=== PATIENT | female | born 1950 | race Caucasian/White ===

== ENCOUNTER 2019-03-18 05:46 | Inpatient (IN) | payer OTHER ==
[2019-03-03 13:40] LABS: HEMATOCRIT 40.7 % (37.0-47.0); HEMOGLOBIN 13.5 gm/dL (12.0-15.0); MCH 31.9 pg (26.0-34.0); MCHC 33.1 g/dL (28.0-37.0); MCV 96.3 fL (80.0-100.0); RBC 4.23 mil/uL (4.20-5.00); RDW 13.2 % (10.5-14.5); WBC 6.7 thou/uL (4.0-11.0)
[2019-03-03 13:45] LABS: URINE BILIRUBIN NEGATIVE (Negative); URINE BLOOD NEGATIVE (Negative); URINE CLARITY CLEAR; URINE COLOR YELLOW; URINE GLUCOSE-RANDOM* NEGATIVE (Negative); URINE KETONES NEGATIVE (Negative); URINE NITRITE-REFLEX NEGATIVE (Negative); URINE PROTEIN (DIPSTICK) NEGATIVE (Negative); URINE UROBILINOGEN 0.2 E.U./dl (0.2-1.0)
[2019-03-03 13:49] LABS: URINE LEUKOCYTES-REFLEX 1+ (Negative)
[2019-03-03 13:53] LABS: ALBUMIN 4.3 g/dL (3.4-5.0); CALCIUM 9.8 mg/dL (8.5-10.1); CREATININE 1.2 mg/dL (0.6-1.0)
[2019-03-03 13:54] LABS: INR 1.1
[2019-03-03 13:57] LABS: BACTERIA-REFLEX 1-9 Few /HPF (None Seen); CASTS None Seen /LPF (None Seen); CRYSTALS None Seen /LPF (None Seen); SQUAMOUS >10 Many /LPF (0-3); URINE RBC None Seen /HPF (0-2); URINE WBC-REFLEX 0-5 Rare /HPF (0-5)
[~2019-03-18] VITALS: Ht 157.5 cm; Wt 76.7 kg
[~2019-03-18 05:46] MED LIST: ALLEGRA ALLERG180 MG PO; AMLODIPINE BESY10 MG PO; ASA81BEC PO; ATENOLOL 100MG100 MG PO; FISH OIL 1,0001 EAC9 PO; HALOBETASOL PRO15 G1 TOP; IBUPROFEN 400400 M1 PO; MULTIVITAMINS1 EAC7 PO; TRAMADOL 50 MG50 MG PO; TRIGLIDE160 M1 PO; VITAMIN D1000 UNI2 PO; ZESTRIL40 MG PO
[2019-03-18 07:33] VITALS: BP 148/49
[2019-03-18 13:16] VITALS: BP 117/51
--- NOTE | 2019-03-18 17:27 | NUR ---
ASSUMED CARE OF PT AT 0700. PT IS ABLE TO AMBULATE TO THE TOILET WITH A STANDBY ASSIST. PTS PAIN IS BEING CONTROLLED BY PAIN MEDICATION. POLAR PACK, ILIANA HOSE AND SCD'S IN PLACE. CALL LIGHT IS WITHIN REACH. FALL PRECAUTIONS IN PLACE. WILL CONTINUE TO MONITOR THE PT.
[2019-03-18 17:38] VITALS: BP 111/66
[2019-03-18 17:39] VITALS: BP 110/63; BP 116/64; BP 123/74
[2019-03-19] VITALS (7 sets, daily range): BP systolic 133–139; BP diastolic 46–58
--- NOTE | 2019-03-19 01:58 | NUR ---
ASSUMED CARE OF PT AT APPROX. 2114. ASSESSMENT CHARTED. MEDICATION GIVEN PER JUL. VSS. PATIENT IS A&OX4 AND VOICES NO C/O PAIN AT THIS TIME. PATIENT GOT UP TO BATHROOM, UP X 1 MIN TO MOD ASSIST AND TOLERATING WELL. PATIENT HAS GOOD ROM ON AFFECTED KNEE AND IS DOING WELL. FALL PRECAUTIONS IN PLACE. WILL CONTINUE TO MONITOR AND FOLLOW POC.
[2019-03-19 04:59] LABS: HEMATOCRIT 36.3 % (37.0-47.0); HEMOGLOBIN 12.2 gm/dL (12.0-15.0); MCH 32.2 pg (26.0-34.0); MCHC 33.7 g/dL (28.0-37.0); MCV 95.7 fL (80.0-100.0); RBC 3.79 mil/uL (4.20-5.00); RDW 12.9 % (10.5-14.5); WBC 13.6 thou/uL (4.0-11.0)
[2019-03-19] MEDS ORDERED: ASA81BEC PO (12:13)
[2019-03-19] MEDS ORDERED: NEURONTIN 300300 M1 PO (12:13)
--- NOTE | 2019-03-19 14:22 | NUR ---
DISCHARGE PAPERWORK GONE OVER SIGNED AND COPY INCHART. RX GIVEN TO PATIENT. HYROCODONE RX SENT TO SON TIBURCIO VIA E-MAIL TIBURCIO WORKS AT [employer]. IV ACSESS DCD. ALL BELONGINGS PACKED AND WILL BE SENT WITH PATIENT. HERE AT BEDSIDE. SON TO DRIVE HOME.
--- NOTE | 2019-03-19 14:48 | NUR ---
ASSESSMENT-PT LIVES AT HOME WITH HER . SHE WAS INDEPENDENT OF ADLS AND AMBULATION PRIOR TO ADMISSION. PT WILL GO [facility] SATURDAY [facility]. BOTH PT AND SPOUSE DRIVE. PT NEEDS A ROLLER WALKER FOR HOME TODAY. OFFERED OPTIONS AND SHE CHOSE [employer]. CONTACTED LORI TO ISSSUE A ROLLER WALKER FOR TODAY. FOLLOWING TO ASSIST WITH DC PLANNING.
--- NOTE | 2019-03-24 14:57 | O ---
[facility] [place] [address] OPERATIVE REPORT Name: XIOMARA FORD Room #: 437-P [facility] IN M.R.#: [id number] Admission: 03/18/19 Attend Phys: Td Zapata MD Discharge: 03/19/19 Date of : 50 Report #: [id number] THIS REPORT FOR: //name// CC: Evon MorinDriss Zapata DATE OF SERVICE: 03/18/2019 PREOPERATIVE DIAGNOSIS: Right knee medial compartment osteoarthritis. POSTOPERATIVE DIAGNOSIS: Right knee medial compartment osteoarthritis. PROCEDURE: Right knee medial compartment arthroplasty using Navio robotic assistance. SURGEON: Td aZpata MD STOCK CONTROL CLERK: Josefina Love PA-C INDICATIONS FOR STOCK CONTROL CLERK: Throughout the case, extensive retraction and manipulation of the knee was required. This was afforded to me by my household assistant. ANESTHESIA: LMA with an adductor canal block. IMPLANTS: Sena and Nephew size 4 Journey Oxinium medial femoral component, size 1 tibia and a size 8 polyethylene. TOURNIQUET TIME: 42 minutes. ESTIMATED BLOOD LOSS: 25 mL. COMPLICATIONS: None. SPECIMENS: None. CONDITION UPON LEAVING THE OPERATING ROOM: Stable. INDICATIONS FOR PROCEDURE: The patient is a 68-year-old female with severe right knee medial compartment osteoarthritis. She had failed conservative measures for this and after discussion with her, she elected for right medial compartment knee arthroplasty. DESCRIPTION OF PROCEDURE: Risks, benefits, alternatives, complications were discussed in detail with the patient including but not limited to risk of anesthesia, risk of damage to nerves, arteries, blood vessels, risk for infection, bleeding, risk for continued knee pain, need for reoperation. [facility] [address] [place] [address] OPERATIVE REPORT Name: XIOMARA FORD Room #: 437-P [facility] IN M.R.#: [id number] Admission: 03/18/19 Attend Phys: Td Zapata MD Discharge: 03/19/19 Date of : 50 Report #: [id number] Informed consent was obtained from the patient. Right knee was appropriately marked in the preoperative holding area. IV Ancef was given for preoperative antibiotics. Adductor canal block was placed by Anesthesia. She was brought to the operating room and placed in supine position on operating room table. LMA anesthesia was induced without complication. Tourniquet was placed on the right thigh. Right lower extremity was prepped and draped in normal sterile fashion. Timeout was performed properly identifying the patient and procedure as well as the instrumentation and implants. All in the operating room were in agreement. Right lower extremity was exsanguinated, tourniquet was inflated. Tourniquet time was 42 minutes. Standard approach to the medial knee was made with 10 blade through the skin. Dissection was taken down sharply to the fascia and deep flaps were developed medially and laterally. Fresh 10 blade was used to make a medial parapatellar arthrotomy and the knee was inspected. There was severe medial compartment osteoarthritis. Lateral compartment was well maintained. ACL was intact. 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 It was decided to proceed with medial compartment arthroplasty. Reference pins were placed in the femur and the tibia. The knee was then digitally mapped using the [employer] robotic system. Intraoperative plan was made and we sized the size 4 femur and a size 1 tibia with a 9 spacer. After acceptance of the intraoperative plan, the femoral and tibial resections were made with a Navio bur. The medial meniscus was removed with Bovie cautery. Tibia was sized, found to be a size 1. A size 1 tibial trial was pinned and drilled. A size 4 femoral trial was placed and then this was trialed with a size 8 polyethylene. Knee was taken through range of motion, found to have a millimeter laxity medially throughout range of motion of the knee. After this, trial components were removed. Bony ends were thoroughly irrigated with normal saline. Final size 1 tibia, size 4 Journey Oxinium medial compartment, femoral component were cemented in place using standard cementation techniques. While the cement cured, a periarticular injection consisting of morphine, ropivacaine, epinephrine, Toradol placed around the knee joint capsule. After the cement cured, the tourniquet was deflated. Hemostasis was obtained with Bovie cautery. Final size 8 polyethylene was placed. A gram of vancomycin was placed deep in the joint. Fascia was closed with 0 Vicryl, skin was closed with 2-0 Vicryl, 3-0 Monocryl. Dermabond and a LAWRENCE dressing was applied. The patient tolerated this procedure well and went to recovery room under care of anesthesia postoperatively. <ELECTRONICALLY SIGNED> By: Td Zapata MD 03/24/19 1457 1030 [id number] Td Zapata MD /nt
== END 2019-03-19 16:43 | disposition home or self-care (01) | DRG 470 ==
LOC: 4S 05:46 → TBA 05:46 → PRE 10:32 → 4S 12:23 → PRE 12:35 → ENTRNSPT 03-19 14:26 → EDTRNSPTSTS 03-19 14:29 → 4S 03-19 16:43
PROVIDERS: ADMIT Orthopaedic Surgery
PROC: 0SRC069 Replacement of Right Knee Joint with Oxidized Zirconium on Polyethylene Synthetic Substitute, Cemented, Open Approach (ICD-10-PCS; principal; 2019-03-18)
PROC: 8E0Y0CZ Robotic Assisted Procedure of Lower Extremity, Open Approach (ICD-10-PCS; principal; 2019-03-18)
DX: M17.11 Unilateral primary osteoarthritis, right knee (principal); Z88.6 Allergy status to analgesic agent; Z79.899 Other long term (current) drug therapy
CPT/HCPCS: 10102; 50010; 50101; 50415; 50954; 51130; 51225; 51320; 52001; 52282; 53078; 53370; 54118; 56527; 56528; 57095; 57103; 57110; 57127; 57180; 62110; 62900; 64039; 70005

== ENCOUNTER → 2019-12-10 | Outpatient (CLI) | payer OTHER ==
[~2019-12-10] MED LIST changes: +ASPIR 8181 M1 PO; +CIPRO500 MG PO; +MELOXICAM15 MG PO; +METRONIDAZOLE500 M4 PO; +NEURONTIN 300300 M1 PO; +PEPCID AC20 MG PO
== END ==
LOC: LAB 11:21
PROVIDERS: ATTEND Student in an Organized Health Care Education/Training Program
DX: Z01.812 Encounter for preprocedural laboratory examination (principal); Z11.59 Encounter for screening for other viral diseases

== ENCOUNTER 2019-12-15 06:22 | Day surgery (SDC) | payer OTHER ==
[2019-12-10 11:25] LABS: HEMATOCRIT 41.4 % (37.0-47.0); HEMOGLOBIN 13.9 gm/dL (12.0-15.0); MCH 31.9 pg (26.0-34.0); MCHC 33.6 g/dL (28.0-37.0); RBC 4.36 mil/uL (4.20-5.00); RDW 14.2 % (10.5-14.5)
[2019-12-10 11:30] LABS: URINE BILIRUBIN NEGATIVE (Negative); URINE BLOOD NEGATIVE (Negative); URINE CLARITY CLEAR; URINE COLOR YELLOW; URINE GLUCOSE-RANDOM* NEGATIVE (Negative); URINE KETONES NEGATIVE (Negative); URINE NITRITE-REFLEX NEGATIVE (Negative); URINE PROTEIN (DIPSTICK) NEGATIVE (Negative); URINE UROBILINOGEN 0.2 E.U./dl (0.2-1.0)
[2019-12-10 11:31] LABS: URINE LEUKOCYTES-REFLEX 2+ (Negative)
[2019-12-10 11:40] LABS: INR 1.2; PROTIME 11.9 Seconds (9.3-11.4)
[2019-12-10 11:46] LABS: ALBUMIN 4.3 g/dL (3.4-5.0); CALCIUM 9.9 mg/dL (8.5-10.1); CREATININE 1.4 mg/dL (0.6-1.0); POTASSIUM 4.4 mmol/L (3.5-5.1)
[2019-12-10 12:14] LABS: BACTERIA-REFLEX 1-9 Few /HPF (None Seen); CASTS None Seen /LPF (None Seen); CRYSTALS None Seen /LPF (None Seen); SQUAMOUS 4-10 Moderate /LPF (0-3); URINE RBC None Seen /HPF (0-2); URINE WBC-REFLEX 6-15 Few /HPF (0-5)
[2019-12-15] VITALS (14 sets, daily range): BP systolic 110–146; BP diastolic 43–73
[~2019-12-15] VITALS: Ht 157.5 cm; Wt 76.7 kg
--- NOTE | 2019-12-15 14:26 | NUR ---
PATIENT ADMITTED FROM OR WITH LEFT TOTAL KNEE, LAWRENCE DRESSING, KNEE HIGH ILIANA HOSE, POLAR PACK, SCD'S. PATIENT C/O PAIN WITH LEFT KNEE, 10/13, FENTANYL 50MCG IV GIVEN DURING ADMISSION. PATIENT HAS LEFT HAND IV IN PLACE. PATIENT GIVEN ALL SCHEDULED MEDS DURING ADMISSION. NO C/O NAUSEA, REGULAR DIET ORDERED. AT BEDSIDE. ADMISSION COMPLETED AND REPORT GIVEN TO AMARILYS/RN.
--- NOTE | 2019-12-15 18:34 | NUR ---
Assumed care of pt. at 1300. Pt. is calm and cooperative. PT. does not complain of pain. Fall precautions in place.
--- NOTE | 2019-12-16 01:53 | NUR ---
PT IS ALERT AND ORIENTED. PT WALKS TO THE BATHROOM WITH SBA. DRSG TO L KNEE IS C/D/I. POLAR BALBIR IN PLACE. NEUROVASCULAR CHECKS INTACT TO LLE. AFEBRILE. IV FLUIDS AND IV ABTS GIVEN PER SCHEDULE.DENIES NAUSEA OR VOMITING.PROGRESSING TOWARDS CARE GOALS.
[2019-12-16 06:12] LABS: HEMATOCRIT 27.7 % (37.0-47.0); HEMOGLOBIN 9.3 gm/dL (12.0-15.0); MCH 32.5 pg (26.0-34.0); MCHC 33.6 g/dL (28.0-37.0); MCV 96.6 fL (80.0-100.0); RBC 2.87 mil/uL (4.20-5.00); RDW 14.1 % (10.5-14.5); WBC 13.5 thou/uL (4.0-11.0)
--- NOTE | 2019-12-16 08:42 | NUR ---
PT IS IN BED WATCHING TV HAD LEFT TOTAL KNEE REPLACEMENT. POLAR PACK FILLED WITH ICE AND WATER. HAS SCD'S AND ILIANA HOSE ON BILATERALLY. PT WALKED TO BATHROOM WITH SBA.PT STATES NO PAIN AT THE PRESENT. PT EATING BREAKFAST. NO N&V.PT IS PLEASANT AND COOPERATIVE WITH CARE.
[2019-12-16 09:55] VITALS: BP 136/54
[2019-12-16 10:35] VITALS: BP 136/54
[2019-12-16 11:34] VITALS: BP 127/28
[2019-12-16 13:13] VITALS: BP 136/54
--- NOTE | 2019-12-16 14:03 | NUR ---
DISCHARGE PAPERS REVIEWED WITH PATIENT SIGNED AND COPY IN CHART. IV ACSESS DCD. RX AND ORTHO FOLDER GIVEN TO PATIENT. ALL BELONGINGS PACKED AND SENT WITH PATIENT.NO PAIN OR RESP DISTRESS AT DISCHARGE.
--- NOTE | 2019-12-21 15:50 | O ---
[facility] [place] [address] OPERATIVE REPORT Name: XIOMARA FORD Room #: DEP [place] M.Tosha.#: [id number] Admission: 12/15/19 Attend Phys: Td Zapata MD Discharge: 12/16/19 Date of : 50 Report #: [id number] THIS REPORT FOR: cc: Evon Sanon MD, Paula V. MD Abraham,Td Coleman MD ~ CC: Evon Zapata DATE OF SERVICE: 12/15/2019 PREOPERATIVE DIAGNOSIS: Left knee osteoarthritis. POSTOPERATIVE DIAGNOSIS: Left knee osteoarthritis. PROCEDURE: Left total knee arthroplasty using Navio robotic administrative assistant. SURGEON: Td Zapata MD. VISCOSE CELLAR CHARGE HAND: Josefina Love PA-C. INDICATIONS FOR VISCOSE CELLAR CHARGE HAND: Throughout the case, extensive retraction and manipulation of the knee was required. This was afforded to me by my administrative assistant. ANESTHESIA: LMA with an adductor canal block. IMPLANTS: Sena and Nephew size 4, Journey II [employer] cobalt chrome femur, size 2 tibia, size 11 constrained polyethylene and a size 29 patella. TOURNIQUET TIME: 56 minutes. ESTIMATED BLOOD LOSS: 25 mL. COMPLICATIONS: None. SPECIMENS: None. CONDITION UPON LEAVING THE OPERATING ROOM: Stable. INDICATIONS FOR PROCEDURE: The patient is a 69-year-old female with left knee valgus osteoarthritis. She had failed conservative measures for this and after discussion with her, she elected for left total knee arthroplasty. DESCRIPTION OF PROCEDURE: Risks, benefits, alternatives, complications were discussed in detail with the patient including but not limited to risk of anesthesia, risk of damage to nerves, arteries, blood vessels, risk for [facility] [address] [place] [address] OPERATIVE REPORT Name: XIOMARA FORD Room #: DEP [place] Crystal.#: [id number] Admission: 12/15/19 Attend Phys: Td Zapata MD Discharge: 12/16/19 Date of : 50 Report #: [id number] infection, bleeding, risk for continued knee pain, need for reoperation. Informed consent was obtained from the patient. Left knee was appropriately marked in the preoperative holding area. IV Ancef was given for preoperative antibiotics. She was brought to the operating room and placed in supine position on operating room table. LMA anesthesia was induced without complication. Tourniquet was placed on the left thigh. Left lower extremity was prepped and draped in normal sterile fashion. Timeout was performed, properly identifying the patient and procedure as well as the instrumentation and implants. All in the operating room were in agreement. Left lower extremity was exsanguinated, tourniquet was inflated. Tourniquet time was 56 minutes. Standard midline approach to the knee was made with 10 blade through the skin. Dissection was taken down sharply to the fascia and deep flaps were developed medially and laterally. Fresh 10 blade was used to make a medial parapatellar arthrotomy and the knee was inspected. There was severe lateral compartment osteoarthritis with moderate medial and patellofemoral compartment arthritis. ACL and PCL were removed sharply. Reference pins were placed in the femur and the tibia. The knee was digitally mapped using the [employer] robotic system. Intraoperative plan was made and we sized the size 4 femur with a size 2 tibia with a 10 spacer. After acceptance of the intraoperative plan, the distal femoral cut was made with a Navio bur. Distal femoral cutting block was pinned in place and the chamfer cuts were made. Attention was turned to tibia and tibial resection guide was pinned in place using the Navio for placement and tibial resection was made. Flexion and extension gaps were then checked and found to have good balance laterally in flexion and extension with a slight laxity medially. It was felt we could make up for this with a constrained implant. Tibia was sized, found to be a size 2. A size 2 tibial trial was placed, pinned and punched. Size 4 femoral trial was placed and the box cut was made. This was then trialed with a size 10 and then a size 11 constrained polyethylene and size 11 constrained polyethylene demonstrated a millimeter of laxity laterally throughout range of motion with 1-2 mm medially, 9 mm was then removed from the posterior surface of the patella and a size 29 patellar trial was placed. Knee was taken through range of motion, found to be stable, found to have good patellar tracking. After this, trial components were removed. Bony ends were thoroughly irrigated with normal saline. Final size 2 tibia, size 4 Journey II BCS cobalt chrome femur and a size 29 patella were cemented in place using standard cementation techniques. While the cement cured, a periarticular injection consisting of morphine, ropivacaine, epinephrine and Toradol was placed around the knee joint capsule. After the cement cured, the tourniquet was deflated. Hemostasis was obtained with Bovie cautery. A final size 11 constrained polyethylene was placed. A gram of vancomycin was placed deep in the joint. Fascia was closed with 0 Vicryl, skin was closed with 2-0 Vicryl, 3-0 Monocryl. Dermabond and a LAWRENCE dressing was applied. The patient [address] [address] OPERATIVE REPORT Name: XIOMARA FORD Room #: DEP [facility] Manfred#: [id number] Admission: 12/15/19 Attend Phys: Td Zapata MD Discharge: 12/16/19 Date of : 50 Report #: [id number] tolerated this procedure well and went to recovery room under care of anesthesia postoperatively. <ELECTRONICALLY SIGNED> By: Td Zapata MD 12/21/19 1550 [id number] 1702 Td Zapata MD /nt
== END 2019-12-16 14:05 | disposition home or self-care (01) ==
LOC: OR 06:22 → TBA 06:24 → 4S 10:11 → OR 10:19
PROVIDERS: ATTEND Orthopaedic Surgery
DX: M17.12 Unilateral primary osteoarthritis, left knee (principal); M25.562 Pain in left knee; I10 Essential (primary) hypertension; E78.00 Pure hypercholesterolemia, unspecified; K21.9 Gastro-esophageal reflux disease without esophagitis; Z96.651 Presence of right artificial knee joint; Z90.49 Acquired absence of other specified parts of digestive tract; Z98.890 Other specified postprocedural states; Z79.899 Other long term (current) drug therapy; Z88.8 Allergy status to other drugs, medicaments and biological substances
CPT/HCPCS: 10102; 50010; 50101; 50415; 50954; 51130; 51225; 51320; 52001; 52282; 53000; 53078; 53370; 54118; 56527; 56528; 57095; 57103; 57110; 57127; 57179; 57180; 62110; 62900; 64042; 70005